=== PATIENT | male | born 1985 | race Caucasian/White ===

== ENCOUNTER 2025-08-15 09:12 | Inpatient (IN) | payer OTHER ==
[~2025-08-15] VITALS: Ht 172.7 cm; Wt 69.8 kg
[2025-08-15 10:13] LABS: PLATELET COUNT (AUTO) 356 K/uL (150-450); RED BLOOD CELL COUNT(AUTO) 4.82 MIL/uL (4.50-5.90); RED CELL DISTRIBUTION WIDTH 13.3 % (11.5-14.5); WHITE BLOOD COUNT (AUTO) 11.6 K/uL (4.5-11.0)
[2025-08-15 10:28] LABS: CALCIUM, TOTAL 8.7 mg/dL (8.8-10.5); CREATININE 0.83 mg/dL (0.60-1.30); GLOMERULAR FILTR. RATE CALC > 60 mL/min (>60); GLUCOSE,RANDOM 115 mg/dL (70-110); SODIUM SERUM 132 mmol/L (136-145); UREA NITROGEN, BLOOD 13 mg/dL (7-18)
[2025-08-15] MEDS ORDERED: VANCOMYCIN 1.5 GM/WATER(PEG) 300 ML IV ONE (10:45)
[2025-08-15] MEDS: VANCOMYCIN 1.25 GM/WATER(PEG) 250 ML IV ONE (11:33)
[2025-08-15] MEDS: LIDOCAINE 1% 10 ML VIAL SQ ONE (14:25)
[2025-08-15] MEDS ORDERED: ONDANSETRON HCL 4 MG/2 ML VIAL IVP PRN (15:15)
[2025-08-15] MEDS ORDERED: MAGNESIUM HYDROXIDE SUSPENSION 30 ML UDCUP PO PRN (15:15)
[2025-08-15] MEDS ORDERED: BISACODYL 10 MG RECTAL RECTAL SUPPOSITORY PR PRN (15:15)
[2025-08-15] MEDS ORDERED: ACETAMINOPHEN 325 MG TABLET PO PRN (15:15)
[2025-08-15] MEDS: PIPERACILLIN/TAZO 3.375 GM/D5W 50 ML IV ONE (15:36)
[2025-08-15] MEDS: MORPHINE SULFATE 4 MG/ML SYRINGE IVP PRN (15:36)
[2025-08-15] MEDS: HEPARIN SODIUM,PORCINE 5,000 UNITS/ML VIAL SQ SCH (16:09)
[2025-08-15] MEDS: VANCOMYCIN 1GM/WATER(PEG/NADA) 200 ML IV SCH (16:10)
[2025-08-15] MEDS: HYDROCODONE/ACETAMINOPHEN 5-325 MG TABLET PO PRN (18:31)
[2025-08-15] MEDS: DOCUSATE SODIUM 100 MG CAPSULE PO SCH (21:00)
[2025-08-15 21:39] VITALS: BP 116/72; PULSE 80; RESP 20; TEMP 99; O2SAT 98
[2025-08-15] MEDS ORDERED: SODIUM CHLORIDE 0.9% 250 ML IV ONE (23:27)
[2025-08-16 05:33] VITALS: BP 127/78; PULSE 88; RESP 18; TEMP 98.4; O2SAT 96
[2025-08-16 06:43] LABS: PLATELET COUNT (AUTO) 324 K/uL (150-450); RED BLOOD CELL COUNT(AUTO) 5.03 MIL/uL (4.50-5.90); RED CELL DISTRIBUTION WIDTH 12.9 % (11.5-14.5); WHITE BLOOD COUNT (AUTO) 9.9 K/uL (4.5-11.0)
[2025-08-16 06:52] LABS: CALCIUM, TOTAL 8.6 mg/dL (8.8-10.5); CREATININE 0.54 mg/dL (0.60-1.30); GLOMERULAR FILTR. RATE CALC > 60 mL/min (>60); GLUCOSE,RANDOM 122 mg/dL (70-110); SODIUM SERUM 134 mmol/L (136-145); UREA NITROGEN, BLOOD 13 mg/dL (7-18)
[2025-08-16] MEDS: PANTOPRAZOLE SODIUM 40 MG DR TABLET PO SCH (08:26)
[2025-08-16 10:08] VITALS: BP 113/67; PULSE 87; RESP 18; TEMP 98; O2SAT 98
[2025-08-16 20:22] VITALS: BP 114/70; PULSE 82; RESP 18; TEMP 98.2; O2SAT 97
[2025-08-17] MEDS: ZOLPIDEM TARTRATE 5 MG TABLET PO PRN (00:14)
[2025-08-17 03:07] VITALS: BP 110/69; PULSE 67; RESP 18; TEMP 99; O2SAT 97
[2025-08-17 06:32] LABS: PLATELET COUNT (AUTO) 338 K/uL (150-450); RED BLOOD CELL COUNT(AUTO) 4.74 MIL/uL (4.50-5.90); RED CELL DISTRIBUTION WIDTH 12.9 % (11.5-14.5); WHITE BLOOD COUNT (AUTO) 8.9 K/uL (4.5-11.0)
[2025-08-17 07:00] LABS: CALCIUM, TOTAL 8.2 mg/dL (8.8-10.5); CREATININE 0.57 mg/dL (0.60-1.30); GLOMERULAR FILTR. RATE CALC > 60 mL/min (>60); GLUCOSE,RANDOM 118 mg/dL (70-110); SODIUM SERUM 135 mmol/L (136-145); UREA NITROGEN, BLOOD 15 mg/dL (7-18)
[2025-08-17 08:37] VITALS: BP 117/77; PULSE 85; RESP 18; TEMP 98; O2SAT 98
[2025-08-17 08:54] VITALS: BP 114/74; RESP 16; O2SAT 98
[2025-08-17 15:34] VITALS: BP 115/72; PULSE 88; RESP 18; TEMP 97.8; O2SAT 98
[2025-08-17 20:23] VITALS: BP 112/92; PULSE 70; RESP 18; TEMP 98.1; O2SAT 98
[2025-08-18 04:56] VITALS: BP 117/67; PULSE 69; RESP 18; TEMP 98.4; O2SAT 100
[2025-08-18 07:29] LABS: PLATELET COUNT (AUTO) 404 K/uL (150-450); RED BLOOD CELL COUNT(AUTO) 4.98 MIL/uL (4.50-5.90); RED CELL DISTRIBUTION WIDTH 13.2 % (11.5-14.5); WHITE BLOOD COUNT (AUTO) 7.2 K/uL (4.5-11.0)
[2025-08-18 07:40] LABS: CALCIUM, TOTAL 8.8 mg/dL (8.8-10.5); CREATININE 0.47 mg/dL (0.60-1.30); GLOMERULAR FILTR. RATE CALC > 60 mL/min (>60); GLUCOSE,RANDOM 122 mg/dL (70-110); SODIUM SERUM 139 mmol/L (136-145); UREA NITROGEN, BLOOD 11 mg/dL (7-18)
[2025-08-18 08:20] VITALS: BP 119/79; PULSE 73; RESP 20; TEMP 98.6; O2SAT 98
[2025-08-18] MEDS: ETHYL ALCOHOL 62% ANTISEPTIC NASAL SANITIZER 0.6 ML AMPUL NASAL SCH (08:53)
[2025-08-18 20:00] VITALS: BP 124/84; PULSE 78; RESP 18; TEMP 98.1; O2SAT 98
[2025-08-18] MEDS ORDERED: SODIUM CHLORIDE 0.9% 500 ML IV ONE ×2 (21:07→23:49)
[2025-08-19 04:34] VITALS: BP 124/86; PULSE 78; RESP 16; TEMP 98.4; O2SAT 98
[2025-08-19 08:09] VITALS: BP 101/68; PULSE 93; RESP 18; TEMP 99; O2SAT 100
[2025-08-19 08:42] LABS: CALCIUM, TOTAL 9.3 mg/dL (8.8-10.5); CREATININE 0.61 mg/dL (0.60-1.30); GLOMERULAR FILTR. RATE CALC > 60 mL/min (>60); GLUCOSE,RANDOM 106 mg/dL (70-110); SODIUM SERUM 138 mmol/L (136-145); UREA NITROGEN, BLOOD 11 mg/dL (7-18)
[2025-08-19] MEDS ORDERED: BACTDSB PO (11:42)
[2025-08-19] MEDS ORDERED: ACET-2247 PO (11:42)
[2025-08-19] MEDS ORDERED: MAGN-169 PO (11:43)
[2025-08-19] MEDS ORDERED: SULFAMETHOX/TRIMETH DS 800-160 MG/TABLET PO SCH (21:00)
== END 2025-08-19 14:25 | DRG 603 ==
LOC: EMS 09:16 → EDH 15:12 → 6S 21:21
PROVIDERS: ADMIT Internal Medicine; ATTEND Internal Medicine
PROC: 0H9FXZZ Drainage of Right Hand Skin, External Approach (ICD-10-PCS; principal; 2025-08-15)
DX: L03.113 Cellulitis of right upper limb (principal); E87.1 Hypo-osmolality and hyponatremia; L02.511 Cutaneous abscess of right hand; D72.829 Elevated white blood cell count, unspecified; F17.210 Nicotine dependence, cigarettes, uncomplicated; X58.XXXA Exposure to other specified factors, initial encounter; Y93.89 Activity, other specified; Y92.89 Other specified places as the place of occurrence of the external cause; Y99.8 Other external cause status; S60.551A Superficial foreign body of right hand, initial encounter
CPT/HCPCS: 10060; 73200; 80048; 80202; 85025; 87081; 99285; J1644; J2270; J2543; J3490; J7040; J7050